=== PATIENT | female | born 1950 | race Hispanic/Latino ===

== ENCOUNTER → 2025-02-20 12:54 | Outpatient (REF) | payer MEDICARE, OTHER, SELFPAY | LOC: WDC 12:54 | PROVIDERS: ATTENDING PHYSICIAN Obstetrics & Gynecology Gynecology; FAMILY PHYSICIAN Family Medicine | DX: Z12.31 Encounter for screening mammogram for malignant neoplasm of breast (principal) | CPT/HCPCS: 77063; 77067 ==

== ENCOUNTER → 2025-10-01 12:42 | Outpatient (REF) | payer MEDICARE, OTHER, SELFPAY | LOC: EMG 12:42 | PROVIDERS: ATTENDING PHYSICIAN Family Medicine | DX: R20.2 Paresthesia of skin (principal); R20.0 Anesthesia of skin | CPT/HCPCS: 95886; 95910 ==